=== PATIENT | female | born 1980 | race African-American/Black ===

== ENCOUNTER 2022-05-25 13:48 | Observation (INO) ==
[2022-05-25 15:51] LABS: Bacteria,Urine Occasional /HPF (Few); Mucus,Urine Few /LPF (Occasional); Squamous Epithelial Cell,Urine Occasional /HPF (0-10)
[2022-05-25 15:51] LABS: Basophils % 0.2 % (0.0-0.8); Eosinophils # 0.1 10*3/uL (0.0-0.87); Eosinophils % 0.7 % (0.00-10.9); Hematocrit 47.5 VOL% (35.7-47.0); Hemoglobin 15.2 GM/DL (12.0-16.0); Immature Granulocytes % 0.6 %; Immature Granulocytes Absolute 0.08 #; Mean Corpuscular Volume 85.1 FL (87-102); Mean Platelet Volume 11.1 FL (9.6-12.0); Monocytes # 0.8 10*3/uL (0.11-0.8); Monocytes % 5.9 % (1.7-12.7); Neutrophils % 77.6 % (38.7-73.9); Platelet Count 264 T/CUMM (130-400); Red Blood Count 5.58 MC/CUMM (3.8-5.5); Red Cell Distribution Width 14.2 % (9.3-17.3); White Blood Count 13.6 T/CUMM (4-12)
[2022-05-25 16:02] LABS: Urine Color Yellow (Yellow)
[2022-05-25 16:03] LABS: Bilirubin,Urine Small mg/dL (Negative); Blood, Urine Negative (Negative); Glucose,Urine (UA) Negative (Negative); Ketones,Urine 40 mg/dL (Negative); Nitrite,Urine Negative (Negative); Protein,Urine 30 mg/dL (Negative); Urine Appearance Clear (Clear); Urine Specific Gravity > 1.030 (1.001-1.035); Urine Urobilinogen 0.2 eU/dL (<2.0)
[2022-05-25 16:11] LABS: Albumin 3.1 G/DL (3.4-5.0); Bilirubin,Total 0.4 MG/DL (0.20-1.00); Calcium 9.4 MG/DL (8.5-10.1); Osmolality,Calculated 280.5 MOS/KG (273-304); Total Protein 7.6 G/DL (6.4-8.2)
[2022-05-25] MEDS ORDERED: MORPHINE 2 MG/1 ML SYRINGE IV PRN (19:16)
[2022-05-25] MEDS ORDERED: GLUCAGON 1 MG VIAL IM PRN (19:16)
[2022-05-25] MEDS ORDERED: ONDANSETRON 4 MG/2 ML VIAL IV PRN (19:16)
[2022-05-25] MEDS ORDERED: DEXTROSE 10% 250 ML BAG IV PRN (19:16)
[2022-05-25] MEDS ORDERED: CALCIUM CARBONATE CHEW 500 MG TABLET PO PRN (19:16)
[2022-05-25] MEDS: ENOXAPARIN 40 MG/0.4 ML SYRINGE SUBCUT SCH (20:46)
[2022-05-25] MEDS: LACTATED RINGERS 1,000 ML IV SCH (20:48)
[2022-05-25] MEDS: CIPROFLOXACIN INJ 400 MG/200 ML PREMIX IV SCH (20:50)
[2022-05-25] MEDS: INSULIN REGULAR 100 UNIT/ML SUBCUT SCH (21:35)
[2022-05-25] MEDS: metroNIDAZOLE INJ 500 MG/100 ML PREMIX IV SCH (21:36)
[2022-05-25] MEDS: HYDROmorphone 1 MG/1 ML SYRINGE IV PRN (23:14)
[2022-05-26] MEDS: metroNIDAZOLE INJ 500 MG/100 ML PREMIX IV SCH ×3 (06:03→21:47)
[2022-05-26 06:49] LABS: Basophils % 0.3 % (0.0-0.8); Eosinophils # 0.2 10*3/uL (0.0-0.87); Eosinophils % 1.9 % (0.00-10.9); Hematocrit 42.8 VOL% (35.7-47.0); Hemoglobin 13.5 GM/DL (12.0-16.0); Immature Granulocytes % 0.6 %; Immature Granulocytes Absolute 0.07 #; Lymphocytes # 3.1 10*3/uL (1.4-4.0); Lymphocytes % 25.5 % (21.3-54.2); Mean Corpuscular HGB Conc 31.5 GM/DL (32-36); Mean Corpuscular Volume 86.5 FL (87-102); Mean Platelet Volume 11.3 FL (9.6-12.0); Monocytes % 8.2 % (1.7-12.7); Neutrophils % 63.5 % (38.7-73.9); Platelet Count 254 T/CUMM (130-400); Red Blood Count 4.95 MC/CUMM (3.8-5.5); Red Cell Distribution Width 14.5 % (9.3-17.3); White Blood Count 12.2 T/CUMM (4-12)
[2022-05-26 07:18] LABS: Calcium 9.2 MG/DL (8.5-10.1); Osmolality,Calculated 277.5 MOS/KG (273-304); Potassium 3.6 MMOL/L (3.5-5.1)
[2022-05-26] MEDS: CIPROFLOXACIN INJ 400 MG/200 ML PREMIX IV SCH ×2 (08:18→19:51)
[2022-05-26] MEDS: INSULIN REGULAR 100 UNIT/ML SUBCUT SCH ×4 (08:22→21:46)
[2022-05-26] MEDS: HYDROmorphone 1 MG/1 ML SYRINGE IV PRN (09:28)
[2022-05-26] MEDS: LACTATED RINGERS 1,000 ML IV SCH ×2 (12:21→23:06)
[2022-05-26] MEDS: ENOXAPARIN 40 MG/0.4 ML SYRINGE SUBCUT SCH (21:45)
[2022-05-27] MEDS: LACTATED RINGERS 1,000 ML IV SCH (02:55)
[2022-05-27] MEDS: metroNIDAZOLE INJ 500 MG/100 ML PREMIX IV SCH (06:07)
[2022-05-27] MEDS: INSULIN REGULAR 100 UNIT/ML SUBCUT SCH ×2 (08:32→12:00)
[2022-05-27] MEDS: CIPROFLOXACIN INJ 400 MG/200 ML PREMIX IV SCH (08:42)
[2022-05-27 11:40] VITALS: BP 149/80
== END 2022-05-27 13:45 | disposition home or self-care (01) ==
LOC: N.ED 13:48 → N.3E 13:48 → SUATTDRO 19:16 → N.3E 19:50
PROVIDERS: ADMIT Family Medicine; ATTEND Internal Medicine